=== PATIENT | female | born 1945 | race Hispanic/Latino ===

== ENCOUNTER 2021-02-07 13:11 | Emergency (ER) | payer MEDICARE ==
[~2021-02-07] VITALS: Ht 160 cm; Wt 59.0 kg
[2021-02-07] MEDS ORDERED: DIATRIZOATE MEGL/DIATRIZOA SOD 30 ML BTL PO ONE (13:36)
== END 2021-02-07 15:10 | disposition home or self-care (01) ==
LOC: ER 13:21
DX: Z43.1 Encounter for attention to gastrostomy (principal); R41.82 Altered mental status, unspecified; I10 Essential (primary) hypertension; E11.9 Type 2 diabetes mellitus without complications; I73.9 Peripheral vascular disease, unspecified; E66.01 Morbid (severe) obesity due to excess calories
CPT/HCPCS: 74018; 99283